=== PATIENT | female | born 1995 | race Caucasian/White ===

== ENCOUNTER 2021-04-24 10:34 | Emergency (ER) | payer OTHER, SELFPAY ==
--- NOTE | ~2021-04-24 | XR_ITS ---
EXAMINATION: XR chest 2V DATE: 04/24/2021 12:00 INDICATION: Cough. TECHNIQUE: Frontal and lateral views of the chest were obtained. COMPARISON: None. FINDINGS: The chest demonstrates clear lungs without pneumonia, pleural effusion, or pneumothorax. Th e heart size is normal. IMPRESSION: 1. No acute cardiopulmonary disease. Reviewed, dictated and finalized at location A. R [employer]
[2021-04-24 11:25] VITALS: BP 131/82; PULSE 97; RESP 16; TEMP 36.5; O2SAT 100
--- NOTE | 2021-04-24 11:49 | ED.GENADULT ---
HPI - General Adult General Chief complaint: Upper Respiratory Infection Stated complaint: hoarness,cough Time Seen by Provider: 04/24/21 11:07 Source: patient Mode of arrival: ambulatory Limitations: no limitations History of Present Illness HPI narrative: Patient presents for evaluation of respiratory symptoms. She indicates 5 days ago she felt like her voice was hoarse . She has since developed a productive cough of green sputum. She denies fever, chills, nausea, vomiting, diarrhea, chest pain, shortness of breath. She took a Covid test 2 days ago at home which was negative. She repeated the test again today and that was negative as well. She has received COVID vaccination with booster. She has been taking Mucinex and Flonase for symptoms. Her child had similar respiratory symptoms this week. Related Data Home Medications Medication Instructions Recorded Confirmed doxepin 100 mg PO DAILY 04/24/21 04/24/21 levothyroxine 100 mcg PO DAILY 04/24/21 04/24/21 sertraline [Zoloft] 200 mg PO DAILY 04/24/21 04/24/21 Allergies Allergy/AdvReac Type Severity Reaction Status Date / Time No Known Allergies Allergy Verified 04/24/21 12:03 Review of Systems Review of Systems: CONSTITUTIONAL: Denies fever, chills, or sweats. EYES: Denies visual changes, redness, or discharge. ENT: Reports sore throat. Denies rhinorrhea, congestion, or otalgia. CARDIOVASCULAR: Denies chest pain, palpitations, or edema. RESPIRATORY: Reports productive cough of green sputum. Denies shortness of breath. GASTROINTESTINAL: Denies abdominal pain, nausea, vomiting, or diarrhea. GENITOURINARY: Denies dysuria or hematuria. SKIN: Denies rash or itching. MUSCULOSKELETAL: Denies back pain, joint pain, or myalgia. NEUROLOGIC: Denies headache, numbness, dizziness, or weakness. PSYCHIATRIC: Denies anxiety or depression. [facility] Past Medical History Medical History (Updated 04/24/21 @ 12:[address], CHELE) Depression Hypothyroidism Surgical History Surgical History No pertinent past surgical history Family History Family History Mother No pertinent past medical history Social History Social History Smoking status: Never smoker Substance use: never Living arrangements: with family Gender identity (if verbalized by the patient): Female Sexual Orientation (if Verbalized by the Patient): Straight or Heterosexual Spiritual care concerns: No Exam Narrative: GENERAL: Well-appearing, well-nourished, and in no acute distress. HEAD: Normocephalic, atraumatic. EYES: PERRLA and EOMI. ENT: Nares clear, no rhinorrhea or epistaxis. Mucous membranes moist. Oropharynx without tonsillar hypertrophy exudate or other lesions. Bilateral TMs pearly keating nonbulging NECK: Supple. No adenopathy or masses. No carotid bruits or JVD CHEST: Clear to auscultation. No respiratory distress. No wheezes rales or rhonchi HEART: Regular rate and rhythm. No murmur heard. Normal peripheral pulses. ABDOMEN: Soft, nontender, nondistended, normal active bowel sounds. EXTREMITIES: Normal range of motion. No edema. SKIN: Warm, dry, no rash. NEURO: No focal deficits. Alert and oriented x3. PSYCH: Normal mood and affect. Course Course Emergency Course: This is a 25-year-old female presented with complaints of respiratory symptoms. Strep, influenza, Covid were all negative. Chest x-ray was negative. Likely acute viral syndrome. Advised increase hydration. She can use Mucinex DM for cough and Cepacol lozenges for sore throat. She should follow-up outpatient for further evaluation and treatment and return for worsening symptoms. Patient agreed with plan of care Level of Care: Express Care Visit Vital Signs Vital signs: Vital Signs Temperature 36.5 C 04/24/21 11:25
== END 2021-04-24 13:00 | disposition home or self-care (01) ==
PROVIDERS: Emergency Provider Nurse Practitioner
DX: B34.9 Viral infection, unspecified (principal); Z20.822 Contact with and (suspected) exposure to COVID-19; E03.9 Hypothyroidism, unspecified; F32.A Depression, unspecified
CPT/HCPCS: 71046; 87081; 87426; 87804; 87880; 99213; C9803; G0463

== ENCOUNTER 2021-05-12 17:17 | Emergency (ER) | payer OTHER, SELFPAY ==
[2021-05-12 17:27] VITALS: BP 113/73; PULSE 114; RESP 14; TEMP 37; O2SAT 100
--- NOTE | 2021-05-12 17:46 | ED.URI ---
HPI - URI/Sore Throat General Chief Complaint: Upper Respiratory Infection Stated Complaint: sore throat aches dizzy spells Time Seen by Provider: 05/12/21 17:51 Source: patient and RN notes reviewed Mode of arrival: ambulatory Limitations: no limitations History of Present Illness HPI Narrative: 25-year-old female presents with concern for sore throat, body aches. Reports dizziness. Reports symptoms started 3 days ago. Reports she was tested for COVID, flu, strep at the beginning of her illness in April and all were negative. She reports most of her symptoms resolved however she has been sick on and off since then. She denies any new fever, cough, nasal congestion, rhinorrhea or sinus pain, postnasal drainage. MD elicited complaint: cough and sore throat Related Data Home Medications Medication Instructions Recorded Confirmed doxepin 100 mg PO DAILY 04/24/21 05/12/21 levothyroxine 100 mcg PO DAILY 04/24/21 05/12/21 sertraline [Zoloft] 200 mg PO DAILY 04/24/21 05/12/21 atorvastatin 10 mg PO DAILY 05/12/21 05/12/21 diclofenac sodium 75 mg PO BID 05/12/21 05/12/21 valacyclovir 500 mg PO DAILY 05/12/21 05/12/21 Allergies Allergy/AdvReac Type Severity Reaction Status Date / Time No Known Allergies Allergy Verified 04/24/21 12:03 Review of Systems Review of Systems: CONSTITUTIONAL: Reports malaise. Denies chills, sweats, or fever. EYES: Denies visual changes, redness, or discharge. ENT: Denies rhinorrhea, congestion, sinus pain, otalgia. Reports sore throat. CARDIOVASCULAR: Denies chest pain, palpitations, or edema. RESPIRATORY: Reports cough. Denies dyspnea. GASTROINTESTINAL: Denies abdominal pain, nausea, vomiting, diarrhea SKIN: Denies rash or itching. MUSCULOSKELETAL: Reports myalgia. NEUROLOGIC: Denies headache. All systems reviewed & are unremarkable except as noted in HPI and below PMFSH Past Medical History Medical History (Updated 05/12/21 @ 18:14 by Cristiana Gonsalez NP) Depression Hypothyroidism Surgical History Surgical History No pertinent past surgical history Family History Family History Mother No pertinent past medical history Social History Social History Smoking status: Never smoker Substance use: never Gender identity (if verbalized by the patient): Female Sexual Orientation (if Verbalized by the Patient): Straight or Heterosexual Spiritual care concerns: No Comments At time of signature, agree with nursing past medical, surgical, social and family history. There is no relevant family history pertinent to the presenting complaint Exam Narrative: GENERAL: Well-appearing, well-nourished, and in no acute distress. HEAD: Normocephalic EYES: PERRLA, conjunctivae clear ENT: Nares clear. Mucous membranes moist. TM pearly keating with dull light reflex bilaterally; no tragal tenderness. Oropharynx not erythematous without lesions. Tonsils not enlarged and without exudate, no drooling, no hoarseness, no trismus, uvula midline. NECK: Supple. No lymphadenopathy CHEST: Clear to auscultation, breath sounds equal. No wheezing, rhonchi, rales, or stridor. No respiratory distress, speaks in full sentences. HEART: Regular rate and rhythm. No murmur heard. SKIN: Warm, dry, no rash. NEURO: Alert and oriented x3. PSYCH: Normal mood and affect Course Course Emergency Course: Patient is aware of diagnosis, understands and agrees to treatment plan. Anticipatory guidance given. Patient agrees to follow-up as directed and is aware of reasons to seek care at the emergency department. Portions of this record may have been created with voice recognition software Level of Care: Express Care Visit Vital Signs Vital signs: Vital Signs Temperature 98.6 F 05/12/21 17:27 Pulse Rate 114 H 05/12/21 17:27 Respiratory R
== END 2021-05-12 18:18 | disposition home or self-care (01) ==
PROVIDERS: Emergency Provider Nurse Practitioner
DX: J02.9 Acute pharyngitis, unspecified (principal); Z20.822 Contact with and (suspected) exposure to COVID-19; F32.9 Major depressive disorder, single episode, unspecified; E03.9 Hypothyroidism, unspecified
CPT/HCPCS: 87081; 87426; 87880; 99213; C9803; G0463